=== PATIENT | male | born 1975 | race American Indian/Alaskan Native ===

== ENCOUNTER 2017-04-25 01:41 | Emergency (ER) | payer SELFPAY ==
[2017-04-25 01:47] VITALS: BP 129/86
[2017-04-25] MEDS ORDERED: DUONEB *Not for PRN Use IH ONE (01:55)
== END 2017-04-25 05:24 | disposition left against medical advice (07) ==
LOC: ED 01:41
DX: J45.909 Unspecified asthma, uncomplicated (principal); Z53.21 Procedure and treatment not carried out due to patient leaving prior to being seen by health care provider
CPT/HCPCS: 94640